=== PATIENT | female | born 1960 | race Caucasian/White ===

== ENCOUNTER 2018-09-22 07:00 | Emergency (ER) | payer BC ==
[2018-09-22] MEDS ORDERED: Fluorescein Opthalmic Strip ONE (07:12)
[2018-09-22] MEDS ORDERED: Proparacaine 0.5% Opth 15 ML BOT ONE (07:12)
== END 2018-09-22 07:31 | disposition home or self-care (01) ==
LOC: SCSER 07:00
DX: H00.015 Hordeolum externum left lower eyelid (principal)
CPT/HCPCS: 99283

== ENCOUNTER 2018-10-29 08:58 | Outpatient (CLI) | payer BC ==
--- NOTE | 2018-11-17 16:32 | MMO ---
Bilateral MAMMO Bilat Screen [facility]. CLINICAL HISTORY: Patient is 58 years old and is seen for screening. The patient has no family history of breast cancer. The patient has no personal history of cancer. VIEWS: The views performed were: bilateral craniocaudal with tomosynthesis and bilateral mediolateral oblique with tomosynthesis. FILMS COMPARED: The present examination has been compared to prior imaging studies performed at [facility] on 08/16/2016 and 12/03/2017. MAMMOGRAM FINDINGS: There are scattered fibroglandular densities. There are no suspicious masses, suspicious calcifications, or new areas of architectural distortion. IMPRESSION: THERE IS NO MAMMOGRAPHIC EVIDENCE OF MALIGNANCY. A ROUTINE FOLLOW-UP MAMMOGRAM IN 1 YEAR IS RECOMMENDED. THE RESULTS OF THIS EXAM WERE SENT TO THE PATIENT. ACR BI-RADS Category 1 - Negative MAMMOGRAPHY NOTE: 1. A negative mammogram report should not delay a biopsy if a dominant of clinically suspicious mass is present. 2. Approximately 10% to 15% of breast cancers are not detected by mammography. 3. Adenosis and dense breasts may obscure an underlying neoplasm.
== END 2018-10-29 08:59 | disposition home or self-care (01) ==
LOC: BICMAMMO 08:58
PROVIDERS: ATTEND Family Medicine
DX: Z12.31 Encounter for screening mammogram for malignant neoplasm of breast (principal)
CPT/HCPCS: 77063; 77067

== ENCOUNTER 2021-05-07 16:31 | Outpatient (CLI) | payer BC | END 2021-05-07 16:32 | disposition home or self-care (01) | LOC: SCSRAD 16:31 | PROVIDERS: ATTEND Family Medicine | DX: U07.1 COVID-19 (principal); J98.11 Atelectasis | CPT/HCPCS: 71046 ==